=== PATIENT | female | born 1975 | race Hispanic/Latino ===

== ENCOUNTER 2017-01-01 15:35 | Emergency (ER) | payer OTHER ==
[~2017-01-01] VITALS: Ht 154.9 cm; Wt 109.5 kg
[~2017-01-01 15:35] MED LIST: ALBU8.5H2 INHALATION; CETI10TA27 PO; CHOL100045 PO; FLUT9.9S NS; RANI-426 PO; SERT20OR6 PO
[2017-01-01 15:51] VITALS: BP 108/73; PULSE 79; RESP 12; RESP 20; O2SAT 98
[2017-01-01] MEDS ORDERED: ASPI-973 PO (16:10)
[2017-01-01] MEDS ORDERED: [UNRECOGNIZED DRUG - OTHER] PEG (16:10)
[2017-01-01] MEDS ORDERED: AMIT10TA6 PO (16:10)
[2017-01-01] MEDS ORDERED: CETI5TAB28 PO (16:10)
[2017-01-01] MEDS ORDERED: BUPR150T9 PO (16:10)
[2017-01-01] MEDS ORDERED: SUMA5SPR2 NS (16:10)
[2017-01-01] MEDS ORDERED: PROP40TA5 PO (16:10)
[2017-01-01] MEDS ORDERED: CETI-343 PO (16:10)
--- NOTE | 2017-01-01 16:18 | ED.REPORT ---
HPI-Chest Pain 40 and Over Date of Service Jan 01, 2017 ED Provider: Teo Mckeon MD Pt is a 41 year old female with a history of GERD, migraines and depression who presents to the ED complaining of chest pain. The pain is described as a left- sided pressure that radiates into her left arm and neck. The pain began at approximately 15:00 and was relieved very briefly by nitro. The pt experienced similar symptoms last night that were "possibly" relieved by nitro. The pain is exacerbated by exertion, bending, twisting and relieved somewhat by rest. She admits to shortness of breath and a mild cough but denies abdominal pain, burning in her throat, fever or chills. The pain does not feel like GERD and the pt denies recent trauma. The pt has a similar episode in 07/2016, at which point she had a normal stress test. Nursing Notes Stated Complaint: chest discomfort Chief Complaint: Chest Pain Nursing Notes Reviewed: Yes Allergies: Coded Allergies: No Known Allergies (Verified Allergy, Unknown, 01/01/17) Scheduled ([ortistat]) 12 MG PEG TIDWM Amitriptyline (Amitriptyline) 10 Mg Tablet 20 MG PO HS Aspirin (Aspirin) 81 Mg Tablet 81 MG PO DAILY Bupropion HCl (Zyban) 150 Mg Tablet.er 150 MG PO DAILY Cetirizine (Cetirizine) 5 Mg Tablet 5 MG PO HS Cetirizine HCl (All Day Allergy) 10 Mg Tab.chew 10 MG PO DAILY Cetirizine HCl (24Hour Allergy) 10 Mg Tablet 10 MG PO dialy Cholecalciferol (Vitamin D3) (Vitamin D) 1,000 Unit Capsule 1,000 UNIT PO DAILY Ranitidine (Ranitidine) 75 Mg Tablet 75 MG PO DAILY Scheduled PRN Propranolol HCl (Propranolol HCl) 40 Mg Tablet 20 MG PO BID PRN PRN migraine Sumatriptan (Sumatriptan) 5 Mg Laporte 5 MG NS PRN migraine General Time Seen by MD: 16:00 Chief Complaint Chest pain Hx Obtained From: Patient Arrived By: Walk-in Sudden in Onset?: Yes Onset Occurred: 1 - 4 hours ago Symptom Duration: Since onset Recent Healthcare: No recent hospitalization, Recent doctor visit Similar Sx Previous: Yes Past Medical History Past Medical History depression migraines asthma GERD HPV+ UTI back strain Past Surgical History eye Reports: Carpal tunnel Smoking History Never Smoker Social History Alcohol Use: "Social" Other Social History: Good social support Ambulatory Status Independent Review of Systems Review of Systems Note: denies burning in throat Constitutional: Denies: Chills, Fever Respiratory: Reports: Non-productive cough, Shortness of breath Cardiovascular: Reports: Chest pain GI: Denies: Abdominal pain, Diarrhea, Nausea, Vomiting Musculoskeletal: Reports: Extremity pain, Neck pain, Denies: Back pain Skin: Denies Rash Complete sys rev & neg: except as marked. Physical Exam Initial Vital Signs Vital Signs (First) Date Time Temp Pulse Resp B/P Pulse Ox O2 Delivery O2 Flow Rate FiO2 01/01/17 15:51 36.9 79 12 108/73 98 Room Air Initial VS: Reviewed General/Constitutional: Awake, Alert Respiratory / Chest: Atraumatic, Breath sounds NL, Breath sounds = bilat, No respiratory distress no chest wall tenderness Cardiovascular: Heart rate NL, Regular rhythm, Heart sounds NL, No gallop, No murmurs, No rubs good bilateral radial pulses Abdomen: Atraumatic, Soft, Non-tender Neck: Atraumatic, Supple, Full range of motion Back: Atraumatic, Full range of motion Lower Extremity / Pelvis / MS: Atraumatic, Full range of motion trace edema of bilateral lower extremities no unilateral calf swelling or tenderness Skin: Atraumatic, Color NL, No rash, Warm, Dry Neurologic: Oriented X3, Speech NL, No motor deficits, No sensory deficits Psychiatric: Affect NL, Mood NL Head / Eyes: Atraumatic, Normocephalic, PERRL, EOMI ENT: Atraumatic, Airway patent, Mucous membranes moist Upper Extremity / MS: Atraumatic, Full range of motion Interpretation & Diagnostics Lab Results Interpretation Result Diagram: 01/01/17 1625 01/01/17 1625 Test 01/01/17 16:25 White Blood Count 7.2th/mm3 (3.8-10.1) Red Blood Count 4.82mil/mm3 (3.90-5.20) Hemoglobin 14.0g/dL (12.0-15.6) Hematocrit 41.4% (35.0-46.0) Mean Corpuscular Volume 85.9fL (81-100) Mean Corpuscular Hemoglobin 29.0pg (27.0-35.0) Mean Corpuscular Hemoglobin Concent 33.8% (32.0-37.0) Red Cell Distribution Width 13.0% (12.3-15.4) Platelet Count 192bil/L (150-400) Neutrophils (%) (Auto) 43.8% (40-74) Lymphocytes (%) (Auto) 47.1% (14-46) Monocytes (%) (Auto) 6.2% (4-12) Eosinophils (%) (Auto) 2.2% (0-5) Basophils (%) (Auto) 0.6% (0-3) Sodium Level 136mEq/L (134-144) Potassium Level 3.8mEq/L (3.5-5.2) Chloride Level 101mEq/L (97-108) Carbon Dioxide Level 18mmol/L (18-29) Blood Urea Nitrogen 13mg/dL (6-24) Creatinine 0.51mg/dL (0.57-1.00) Estimat Glomerular Filtration Rate 189mL/min (>59) Glucose Level 95mg/dL (60-99) Calcium Level 9.6mg/dL (8.5-10.1) Magnesium Level 2.0mg/dL (1.6-2.6) Total Bilirubin 0.2mg/dL (0.0-1.2) Aspartate Amino Transf (AST/SGOT) 22U/L (0-50) Alanine Aminotransferase (ALT/SGPT) 25U/L (0-32) Alkaline Phosphatase 92U/L (25-150) Troponin T < 0.010ug/L (0.0-0.011) Total Protein 7.9g/dL (6.4-8.4) Albumin 4.1g/dL (3.4-5.0) Hold Rogers Top Tube Received (Received) ECG Interpretation ECG Interpretation: normal sinus rhythm with a rate of 64 normal axis normal interval no ST segment elevation no T wave abnormalities no prior EKG for comparison Time: 15:54 Interpreted by: ED physician X-Ray Chest Interpretation Chest Xray Interpretation: IMPRESSION: No acute pulmonary process. Dictated by: Hilaria Richmond M.D. on 01/01/2017 at 15:21 Approved by: Hilaria Richmond M.D. on 01/01/2017 at 15:22 Interpretation / Wet Read by: Interpret - Radiologist Re-Eval/Medical Decision Med Decision/Clinical Course Pt is a 41 year old female with a history of GERD, migraines and depression who presents to the ED complaining of chest pain. The pain is described as a left- sided pressure that radiates into her left arm and neck. The pain began at approximately 15:00 and was relieved very briefly by nitro. The pt experienced similar symptoms last night that were "possibly" relieved by nitro. The pain is exacerbated by exertion, bending, twisting and relieved somewhat by rest. She admits to shortness of breath and a mild cough but denies abdominal pain, burning in her throat, fever or chills. The pain does not feel like GERD and the pt denies recent trauma. The pt has a similar episode in 07/2016, at which point she had a normal stress test. Here in the emergency department the patient is afebrile, hemodynamically stable and in no apparent distress with examination as above. EKG: Normal sinus rhythm with a rate of 64 Normal axis Normal interval No ST segment elevation No T wave abnormalities No prior EKG for comparison Reviewed stress test dated 08/27/2016 which demonstrated "no significant ischemic changes with exercise" Laboratory studies notable as below: CBC unremarkable CMP unremarkable Troponin neg x2 CXR: Obtained, reviewed and interpreted by myself shows no evidence of infiltrates, effusions or pneumothorax. Cardiac and mediastinal silhouette normal. No bony or soft tissue abnormalities. Presentation unconvincing for acute coronary syndrome given absence of major risk factors, negative troponin, nonischemic chest x-ray and negative serial troponins here in emergency department as well as negative recent stress test. Moreover, patient has no major risk factors for development of pulmonary embolism, no physical exam findings suggestive of DVT and no tachycardia, tachypnea or hypoxia on room air. I do not feel that workup for pulmonary embolism is indicated. No findings of pneumonia or pneumothorax either. Here in emergency department patient reported complete resolution of symptoms and stated that she felt better. Cause for chest pain is not entirely clear however at this time I see no evidence of acutely life-threatening etiologies. She will follow up closely with her primary care physician. She will return immediately should she develop any recurrent or worsening symptoms. Prior to discharge follow-up and return precautions were reviewed in detail with the patient who verbalized understanding and agreement with the plan. The patient was discharged in stable condition. Source of Hx: Old records Time of Eval: 19:11 Patient Status: Condition improved Re-Evaluation/Progress Note: Pt rechecked, who is comfortable. Lab results, diagnosis and plan for discharge are discussed. The pt understands and agrees with the plan. All questions are addressed at this time. Counseled Regarding: Diagnosis, Lab results, Need for follow-up, When/why to return to ED Discharge & Departure Primary Impression: Chest pain Chest pain type: unspecified Qualified Code: R07.9 - Chest pain, unspecified Disposition: Home Discharge Condition All VS Reviewed: Yes Condition: Stable Patient Instructions: Chest Pain (ED) Additional Instructions: Thank you for seeking care at the emergency room.. Our primary goal today in the ED was to evaluate you for any life-threatening conditions. Your evaluation was reassuring. You should follow-up with your primary doctor in the next week. You should return to the ED immediately if you develop recurrent chest pain, fevers, vomiting, cough, shortness of breath, chest pain, lightheadedness, weakness or any other concerning signs or symptoms. Thank you for letting us partake in your care today. Referrals: Keaton Joseph MD (PCP) Scribe Attestation Portions of this note were transcribed by Karrie Alan. I, Dr. Mckeon personally performed the history, physical exam and medical decision-making; I reviewed and confirmed the accuracy of the information in the transcribed note. copies to: Keaton Joseph MD, Beck O MD Jan 01, 2017 16:18 KARRIE ALAN Jan 01, 2017 16:27
--- NOTE | 2017-01-01 16:23 | DRSVH ---
PROCEDURE: X-RAY CHEST ONE VIEW, PORTABLE ([id number]) INDICATIONS: cp TECHNIQUE: One view of the chest was acquired. COMPARISON: [facility], CR, XR CHEST 2VW, 08/13/2016, 16:00. FINDINGS: Surgical changes and devices: None. Lungs and pleura: No pleural effusions or pneumothorax. Lungs are clear. Mediastinum: Mediastinal contours appear normal. Heart size is normal. Bones and chest wall: No suspicious bony lesions. Overlying soft tissues appear unremarkable. IMPRESSION: No acute pulmonary process. Dictated by: Hilaria Richmodn M.D. on 01/01/2017 at 15:21 Approved by: Hilaria Richmond M.D. on 01/01/2017 at 15:22
[2017-01-01 16:37] LABS: BASOPHILS % (AUTO) 0.6 % (0-3); EOSINOPHILS % (AUTO) 2.2 % (0-5); MONOCYTES % (AUTO) 6.2 % (4-12); Mean Corpuscular Volume 85.9 fL (81-100); NEUTROPHILS % (AUTO) 43.8 % (40-74); Platelet Count 192 bil/L (150-400)
[2017-01-01 17:13] LABS: TROPONIN T < 0.010 ug/L (0.0-0.011)
[2017-01-01 17:35] VITALS: BP 128/56; PULSE 75; RESP 20; O2SAT 98
[2017-01-01 19:13] VITALS: BP 113/75; PULSE 85; RESP 20; O2SAT 97
== END 2017-01-01 19:14 | disposition home or self-care (01) ==
LOC: SED 15:35
DX: R07.9 Chest pain, unspecified (principal); K21.9 Gastro-esophageal reflux disease without esophagitis